=== PATIENT | male | born 1965 | race Caucasian/White ===

== ENCOUNTER 2023-08-05 16:11 | Emergency (ER) | payer BC ==
[~2023-08-05] VITALS: Ht 167.6 cm; Wt 77.1 kg
[2023-08-05 16:16] VITALS: BP 156/97; PULSE 83; RESP 22; TEMP 98.4; O2SAT 96
[2023-08-05] MEDS ORDERED: oxyCODONE/APAP 5/325 MG 1 TAB TAB ONE (16:51)
[2023-08-05] MEDS: BACITRACIN OINT 500 UNITS/GM PKT TP ONE (16:56)
[2023-08-05] MEDS: cephALEXin 500 MG CAP PO ONE (16:58)
[2023-08-05] MEDS: oxyCODONE/APAP 5/325 MG 1 TAB TAB PO ONE (17:01)
[2023-08-05] MEDS ORDERED: CEPH-588 PO (17:07)
[2023-08-05] MEDS ORDERED: NIFE30TE5 PO (17:07)
[2023-08-05] MEDS ORDERED: BACI-418 TP (17:07)
[2023-08-05 17:37] VITALS: BP 169/71; PULSE 77; RESP 20; TEMP 98.4; O2SAT 97
== END 2023-08-05 17:37 | disposition home or self-care (01) ==
LOC: MED 16:11
DX: S30.810A Abrasion of lower back and pelvis, initial encounter (principal); I10 Essential (primary) hypertension; Z79.899 Other long term (current) drug therapy; X58.XXXA Exposure to other specified factors, initial encounter; Y93.89 Activity, other specified; Y92.89 Other specified places as the place of occurrence of the external cause; Y99.8 Other external cause status
CPT/HCPCS: 90471; 90715; 99283